=== PATIENT | male | born 1965 | race American Indian/Alaskan Native ===

== ENCOUNTER 2017-03-29 05:52 | Emergency (ER) | payer SELFPAY ==
[2017-03-29 06:03] VITALS: BP 145/91
--- NOTE | 2017-03-29 07:40 | Emergency Department Report ---
ED Rash HPI - HPI Chief Complaint: Skin Rash Stated Complaint: BUGS Time Seen by Provider: 03/29/17 07:19 Rash Symptoms: Yes Itching, No Facial Swelling, No Tongue/Oral Swelling, No Breathing Difficulties, No Choking Sensation, No Wheezing/Dyspnea, No Peeling, No Blistering, No Fever, No Lightheaded, No Malaise, No Myalgias Severity: moderate Other History: 51M PMH recurrent scabies p/w c/o itchy skin. Patient states that the hotel where he is staying has a known issue with scabies. Has had itchy skin for approximately 1 week. Patient is accompanied by partner who also has same symptoms. Denies fevers or chills. Itchy reddish plaques on the skin near skin folds ED Review of Systems ROS: Stated complaint: BUGS Other details as noted in HPI Constitutional: denies: chills, fever Eyes: denies: eye pain, eye discharge, vision change ENT: denies: ear pain, throat pain Respiratory: denies: cough, shortness of breath, wheezing Cardiovascular: denies: chest pain, palpitations Endocrine: no symptoms reported Gastrointestinal: denies: abdominal pain, nausea, diarrhea Genitourinary: denies: urgency, dysuria Musculoskeletal: denies: back pain, joint swelling, arthralgia Skin: as per HPI, pruritus. denies: rash, lesions Neurological: denies: headache, weakness, paresthesias Psychiatric: denies: anxiety, depression Hematological/Lymphatic: denies: easy bleeding, easy bruising ED Past Medical Hx - Past Medical History Previous Medical History?: No - Surgical History Past Surgical History?: No - Social History Smoking Status: Current Every Day Smoker Substance Use Type: None - Medications Home Medications: Home Medications Medication Instructions Recorded Confirmed Last Taken Type Permethrin 5% [Acticin 5% CREAM] 1 applicatio TP ONCE #1 tube 03/29/17 Unknown Rx Rash Exam - Exam General: Vital signs noted. No distress. Alert and acting appropriately. HEENT: No Periorbital Edema, No Conjuctival Injection, No Chemosis, No Perioral Edema, No Tongue Edema, No Uvular Edema, No Compromised Airway, No Drooling Lungs: Yes Good Air Exchange (Normal Breath Sounds), No Wheezes, No Ronchi, No Stridor, No Cough, No Labored Respirations, No Retractions, No Use of Accessory Muscles, No Other Abnormal Lung Sounds Heart: Yes Regular, No Murmur Skin: Yes Maculopapular Rash, Yes Excoriations (excoriations on the forearms were patient has been itching and scratching himself), No Urticarial Rash, No Morbilliform rash, No Bulla(e), No Weeping, No Tenderness, No Erythema, No Edema , No Encrustations, No Other Other: Positive: Abdomen Normal, Neurologic Normal, Musculoskeletal Normal ED Course Vital Signs 03/29/17 06:00 Temperature 97.8 F Pulse Rate 90 Respiratory 18 Rate Blood Pressure 145/91 O2 Sat by Pulse 100 Oximetry ED Medical Decision Making - Medical Decision Making A/P: Scabies 1-permethrin cream [id number] Benadryl and topical hydrocortisone for itching relief Critical care attestation.: If time is entered above; I have spent that time in minutes in the direct care of this critically ill patient, excluding procedure time. ED Disposition Clinical Impression: Scabies Disposition: - TO HOME OR SELFCARE Is pt being admited?: No Does the pt Need Aspirin: No Condition: Stable Instructions: Scabies (ED) Prescriptions: Permethrin 5% [Acticin 5% CREAM] 1 applicatio TP ONCE #1 tube Referrals: PRIMARY CARE, [Referring] - 3-5 Days Time of Disposition: 07:35
== END 2017-03-29 07:56 | disposition home or self-care (01) ==
LOC: ED 05:52
DX: B86 Scabies (principal); F17.210 Nicotine dependence, cigarettes, uncomplicated
CPT/HCPCS: 99282

== ENCOUNTER 2019-03-20 10:10 | Emergency (ER) | payer SELFPAY ==
[2019-03-20] MEDS ORDERED: TETANUS,DIPH,PERTUSS(ACELL) VACCINE 0.5 ML SYRINGE IM ONE (13:07)
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
--- NOTE | 2019-03-20 14:06 | XRay Report ---
RIGHT HAND, 2 VIEWS INDICATION: hand pain. COMPARISON: None. IMPRESSION: Slightly limited views. No acute osseous or soft tissue abnormality. No significant DJ D. Chronic deformity of the fourth metacarpal neck is suspected. Signer Name: Bala Hargrove Jr, MD Signed: 03/20/2019 2:01 PM Workstation Name: [id number]
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
[2019-03-20 16:03] VITALS: BP 142/86
== END 2019-03-20 16:03 | disposition home or self-care (01) ==
LOC: ED 10:10
DX: S61.411A Laceration without foreign body of right hand, initial encounter (principal); S70.12XA Contusion of left thigh, initial encounter; F17.200 Nicotine dependence, unspecified, uncomplicated; Z98.890 Other specified postprocedural states; Z79.899 Other long term (current) drug therapy; Y04.0XXA Assault by unarmed brawl or fight, initial encounter; Y93.89 Activity, other specified; Y92.89 Other specified places as the place of occurrence of the external cause; Y99.8 Other external cause status
CPT/HCPCS: 90471; 90715; 99283